=== PATIENT | female | born 1960 | race Caucasian/White ===

== ENCOUNTER 2016-03-23 20:30 | Emergency (ER) | payer OTHER ==
--- NOTE | 2016-03-23 20:40 | EDPHY ---
H & P Stated Complaint: Abd pain, vomiting Time Seen by Provider: 03/23/16 20:39 - Personal History Current Tetanus/Diphtheria Vaccine: Yes Current Tetanus Diphtheria and Acellular Pertussis (TDAP): Yes - Medical/Surgical History Hx Asthma: No Hx Chronic Respiratory Disease: No Hx Diabetes: No Hx Cardiac Disease: No Hx Renal Disease: No Hx Cirrhosis: No Hx Alcoholism: No Hx HIV/AIDS: No Hx Splenectomy or Spleen Trauma: No Other PMH: PMH:denies. PSH: scoliosis - Social History Smoking Status: Never smoked Constitutional: Initial Vital Signs Temperature (C) 36.3 C 03/23/16 20:31 Heart Rate 60 03/23/16 20:31 Respiratory Rate 18 03/23/16 20:31 Blood Pressure 136/76 H 03/23/16 20:31 O2 Sat (%) 95 03/23/16 20:31 O2 Delivery Mode Nasal Cannula O2 (L/minute) 2 Allergies/Adverse Reactions: No Known Allergies Allergy (Unverified 04/16/12 21:51) Home Medications: Medication Instructions Recorded Leflunomide [Arava 10 mg (RX)] 10 mg PO DAILY 04/16/12 Simvastatin 10 mg PO 04/16/12 CALCIUM 03/23/16 Fish Oil 03/23/16 Medical Decision Making ED Course/Re-evaluation: CHIEF COMPLAINT: Abdominal pain, vomiting HISTORY OF PRESENT ILLNESS: This patient is a 55 year old female who presents to the Emergency Department complaining of acute abdominal pain and vomiting beginning at 1800 tonight. She describes her pain as "crampy" and localized to the left side of her abdomen. She also complains of bowel urgency without significant stool production. She denies fever or chills or urinary complaints. She has not identified any alleviating factors for her vomiting or pain. Medical history includes RA. REVIEW OF SYSTEMS: A 10 point review of systems was performed and is negative with the exception of the elements mentioned in the history of present illness. PHYSICAL EXAM: HR 60, BP 136/76, O2 Sat 95%, RR 18. Temp noted General Appearance: Alert, well hydrated, appropriate, and non-toxic appearing. Head: Atraumatic without scalp tenderness or obvious injury Eyes: Pupils equal, round, reactive to light and accommodation, EOMI, no trauma , no injection. Ears: Clear bilaterally, no perforation, normal landmarks Nose: Atraumatic, no rhinorrhea, clear. Throat: There is no erythema or exudates, no lesions, normal tonsils, mucus membranes moist. Neck: Supple, 2+ carotid upstroke, nontender, no lymphadenopathy. Respiratory: No retractions, no distress, no wheezes, and no accessory muscle use. Lungs are clear to auscultation bilaterally. Cardiovascular: Regular rate and rhythm, no murmurs, rubs, or gallops. Bilateral carotid, radial, dorsalis pedis, and posterior tibial pulses intact. Good capillary refill all extremities. Gastrointestinal: Abdomen is soft, nontender, non-distended, no masses, no rebound, no guarding, no peritoneal signs. Musculoskeletal: Normal active ROM of all extremities, atraumatic. Neurological: Alert, appropriate, and interactive. The patient has normal DTRs and non-focal cranial nerves, motor, sensory, and cerebellar exam. Skin: No rashes, good turgor, no nodules on palpation. Past medical history: Scoliosis, rheumatoid arthritis. Past surgical history: Denies. Family history: Non-contributory. Social history: , lives in [place], works as a teacher. DIAGNOSTICS/PROCEDURES/CRITICAL CARE TIME: DIFFERENTIAL DIAGNOSIS: The differential diagnosis for the patient's nausea and vomiting included but was not limited to gastroenteritis, gastritis, appendicitis, and medication side effect. MEDICAL DECISION MAKING: This 55 y/o female presents with acute nausea and vomiting. Her presentation is suspicious for gastroenteritis. IV established. 1L IV NS, 50mcg IV Fentanyl, and 4mg IV Zofran administered. 2148: On reevaluation, the patient is feeling much better and will be started on clear liquid trial. 3: The patient continues to feel much better. Her abdomen remains benign on exam. She is eager to go home. She will be discharged home with clear liquids and bland diet instructions and Zofran to take as needed for nausea. My recommendation is that she follow-up with her primary care provider for reevaluation in 3-5 days. She is agreeable to this and will be discharged home in stable condition. - Data Points Medications Given: Discontinued Medications Fentanyl (Sublimaze) 50 mcg IVP EDNOW ONE Stop: 03/23/16 20:42 Last Admin: 03/23/16 20:55 Dose: 50 mcg Sodium Chloride (Ns) 1,000 mls @ 0 mls/hr IV ONCE ONE PRN Reason: Wide Open Stop: 03/23/16 20:43 Last Admin: 03/23/16 20:55 Dose: 1,000 mls Ondansetron HCl (Zofran) 4 mg IVP EDNOW ONE Stop: 03/23/16 20:42 Last Admin: 03/23/16 20:55 Dose: 4 mg Departure - Departure Disposition: Home, Routine, Self-Care Clinical Impression: Gastroenteritis Condition: Good Instructions: Gastroenteritis (ED), Acute Nausea and Vomiting (ED) Additional Instructions: 1. Drink plenty of fluids as tolerated. When your appetite returns, eat a bland diet until you are no longer experiencing any symptoms. 2. Take Zofran as prescribed, as needed for nausea. 3. Follow-up with your primary care provider in 3-5 days if your symptoms persist. 4. Return to the Emergency Department if you experience uncontrollable vomiting , blood in your stool or vomit, high fever, or other serious concerns. Referrals: Radha Ríos MD [Primary Care Provider] - As per Instructions Report Scribed for: Pranay Soto Report Scribed by: Nhung Pandya Date of Report: 03/23/16 Time of Report: 20:44
[2016-03-23] MEDS ORDERED: ONDANSETRON 4 MG/2 ML VIAL IVP ONE (20:41)
[2016-03-23] MEDS ORDERED: fentaNYL 100 MCG/2 ML INJ IVP ONE (20:41)
[2016-03-23] MEDS ORDERED: NS 1,000 ML IV ONE (20:42)
[2016-03-23 21:56] VITALS: PULSE 71; RESP 16
[2016-03-23] MEDS ORDERED: ONDANSETRON 4MG PREPACK#2 BTL TAKEHOME ONE (22:47)
[2016-03-23 23:01] VITALS: BP 136/87; TEMP 97.2; O2SAT 97
== END 2016-03-23 23:10 | disposition home or self-care (01) ==
DX: K52.9 Noninfective gastroenteritis and colitis, unspecified (principal)
CPT/HCPCS: 96374; J2405; J3010

== ENCOUNTER → 2016-08-30 | Outpatient (CLI) | payer OTHER | LOC: FIMAGING 08:01 | PROVIDERS: ATTEND Family Medicine | DX: Z12.31 Encounter for screening mammogram for malignant neoplasm of breast (principal) | CPT/HCPCS: G0202 ==

== ENCOUNTER → 2017-02-19 | Outpatient (CLI) | payer OTHER | LOC: CIMAGING 14:42 | PROVIDERS: ATTEND Family Medicine | DX: M51.35 Other intervertebral disc degeneration, thoracolumbar region (principal); M41.9 Scoliosis, unspecified; Z98.890 Other specified postprocedural states | CPT/HCPCS: 72100-PO ==

== ENCOUNTER → 2017-08-31 | Outpatient (CLI) | payer OTHER | LOC: FIMAGING 08:03 | PROVIDERS: ATTEND Family Medicine | DX: Z12.31 Encounter for screening mammogram for malignant neoplasm of breast (principal) ==